=== PATIENT | female | born 1995 | race Caucasian/White ===

== ENCOUNTER → 2023-11-08 16:48 | Outpatient (REF) | payer OTHER, SELFPAY | LOC: PNTC 16:48 | PROVIDERS: ATTENDING PHYSICIAN Obstetrics & Gynecology | DX: O41.8X20 Other specified disorders of amniotic fluid and membranes, second trimester, not applicable or unspecified (principal) | CPT/HCPCS: 76805 ==

== ENCOUNTER → 2023-12-06 15:24 | Outpatient (REF) | payer OTHER, SELFPAY | LOC: RAD 15:24 | PROVIDERS: ATTENDING PHYSICIAN Obstetrics & Gynecology; FAMILY PHYSICIAN Internal Medicine | DX: R19.01 Right upper quadrant abdominal swelling, mass and lump (principal) | CPT/HCPCS: 76815 ==

== ENCOUNTER → 2023-12-20 15:21 | Outpatient (REF) | payer OTHER, SELFPAY | LOC: PNTC 15:21 | PROVIDERS: ATTENDING PHYSICIAN Obstetrics & Gynecology | DX: Z34.82 Encounter for supervision of other normal pregnancy, second trimester (principal) | CPT/HCPCS: 76811 ==

== ENCOUNTER → 2024-01-26 15:52 | Outpatient (REF) | payer OTHER, SELFPAY | LOC: PNTC 15:52 | PROVIDERS: ATTENDING PHYSICIAN Obstetrics & Gynecology | DX: Q51.3 Bicornate uterus (principal) | CPT/HCPCS: 76816 ==

== ENCOUNTER → 2024-03-13 14:59 | Outpatient (REF) | payer OTHER, SELFPAY | LOC: PNTC 14:59 | PROVIDERS: ATTENDING PHYSICIAN Obstetrics & Gynecology | DX: Q51.810 Arcuate uterus (principal) | CPT/HCPCS: 76816 ==

== ENCOUNTER 2024-04-13 06:50 | Inpatient (IN) | payer OTHER, SELFPAY ==
[2024-04-13 07:31] VITALS: BP 112/80; BMI 35.8
[2024-04-13] MEDS: TYLENOL 1000 MG PO (08:37)
[2024-04-13] MEDS: BICITRA 30 ML PO (09:11)
[2024-04-13 09:32] LABS: Hematocrit 37.9 % (37.0-47.0); Mean Corp Hgb Conc. 34.3 g/dL (33.0-37.0); Mean Corpuscular Hgb 28.5 pg (27.0-31.0); Mean Corpuscular Volume 83.1 fL (81.0-99.0); Mean Platelet Volume 10.7 fL (7.4-10.4); Platelet Count 203 10^3/uL (130-400); Red Blood Cell Count 4.56 10^6/uL (4.20-5.40); Red Cell Dist. Width 12.7 % (11.5-14.5); White Blood Cell Count 9.8 10^3/uL (4.8-10.8)
[2024-04-13] MEDS: LR 1000 IV (11:11)
[2024-04-13] MEDS: TORADOL 15 MG IV ×2 (15:52→21:40)
[2024-04-13] MEDS: MYLICON 80 MG PO (20:49)
[2024-04-14] MEDS: TORADOL 15 MG IV ×2 (04:10→09:59)
[2024-04-14 14:51] LABS: % Basophils 0.3 % (0-2); % Immature Granulocytes 0.6 % (0-0.5); % Lymphocytes 16.6 % (20.5-51.1); % Monocytes 5.4 % (1.7-9.3); % Neutrophils 76.1 % (42.2-75.2); Absolute Basophils 0.1 10^3/uL (0-0.2); Absolute Eosinophils 0.1 10^3/uL (0-0.7); Absolute Immature Granulocytes 0.1 10^3/uL (0-0.05); Absolute Lymphocytes 2.4 10^3/uL (1.2-3.4); Absolute Monocytes 0.8 10^3/uL (0.1-0.6); Hematocrit 34.2 % (37.0-47.0); Hemoglobin 11.5 g/dL (12.0-16.0); Mean Corp Hgb Conc. 33.6 g/dL (33.0-37.0); Mean Corpuscular Hgb 28.3 pg (27.0-31.0); Mean Corpuscular Volume 84.2 fL (81.0-99.0); Mean Platelet Volume 10.3 fL (7.4-10.4); Nucleated Red Blood Cells % 0 %; Platelet Count 215 10^3/uL (130-400); Red Blood Cell Count 4.06 10^6/uL (4.20-5.40); White Blood Cell Count 14.5 10^3/uL (4.8-10.8)
[2024-04-14] MEDS: MOTRIN 600 MG PO ×2 (16:24→22:35)
--- NOTE | 2024-04-14 18:18 | W.PN.ANS.POP ---
Anesthesia Post Operative
- Anesthesia Post Op Note
Vital Signs Stable-See Nursing Note: Yes
Airway Patent: Yes
Adequate Pain Control: Yes
Change in Mental Status: No
Current Postoperative Nausea & Vomiting: No
Anesthesia Complications: No
General Anesthetic Recall: No
Unplanned Admission: No
Post Op Hydration Adequate: Yes
[2024-04-15] MEDS: MOTRIN 600 MG PO ×2 (04:57→14:16)
[2024-04-15] MEDS: SENOKOT-S 1 TABLET PO (09:36)
--- NOTE | 2024-04-15 19:47 | W.DS.TRANS ---
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
-
Discharge Instructions:
Discharge Diagnosis/Procedures section
Instructions:
Stand-Alone Forms: LDRP Delivery
Changes to Home Medications: No
Discharge Medications:
DC Medications w/original date entered in [facility]
1 tab PO 1XD Supplement 04/13/24
acetaminophen 325 mg tablet 650 mg (2 x 325 mg) PO Q4HPRN PRN mild pain #0 tabs 04/15/24
ibuprofen 600 mg tablet 600 mg PO Q6HPRN PRN cramps #40 tabs 04/15/24
sennosides 8.6 mg-docusate sodium 50 mg tablet (Stool Softener-Laxative) 1 tab PO DAILYPRN PRN constipation #0 tabs 04/15/24
simethicone 80 mg chewable tablet 80 mg PO TIDPRN PRN flatulence #0 tabs 04/15/24
Home Medication Changes
Pending Results: No
Total time spent discharging patient (in min): 20
[2024-04-17 12:35] LABS: Syphilis/T. pallidum Ab Reflex Negative (Negative)
== END 2024-04-15 21:40 | disposition home or self-care (01) | DRG 788 ==
LOC: LDRP 06:50
PROVIDERS: ADMITTING PHYSICIAN Obstetrics & Gynecology
PROC: 10D00Z1 Extraction of Products of Conception, Low, Open Approach (ICD-10-PCS; 2024-04-13)
DX: O32.1XX0 Maternal care for breech presentation, not applicable or unspecified (principal); Z3A.39 39 weeks gestation of pregnancy; Z37.0 Single live birth; O34.03 Maternal care for unspecified congenital malformation of uterus, third trimester; Q51.810 Arcuate uterus
CPT/HCPCS: 36415; 85025; 85027; 86780; 86850; 86900; 86901